=== PATIENT | male | born 1980 | race Caucasian/White ===

== ENCOUNTER 2021-08-11 21:37 | Emergency (ER) | payer OTHER, SELFPAY ==
--- NOTE | ~2021-08-11 | XR_ITS ---
EXAMINATION: XR HAND, LEFT CLINICAL INFORMATION: Laceration to second digit COMPARISON: None TECHNIQUE: PA, lateral, and oblique views of the left hand. FINDINGS: Osseous alignment is anatomic. No acute fracture is seen. Soft tissue defect suspected along the radial aspect of the distal second digit. No radiopaque foreign body identified. XR/XR hand LT min 3V IMPRESSION: Laceration at the tip of the second digit without additional acute findings.
[2021-08-11 21:51] VITALS: BP 105/50; PULSE 76; RESP 18; TEMP 37.1; O2SAT 98; BMI 33.1
--- NOTE | 2021-08-12 00:31 | ED_ITS ---
HPI - Wound/Laceration General Chief Complaint: Wound/Laceration Stated Complaint: lac on right hand Time Seen by Provider: 08/12/21 00:31 Source: patient Mode of arrival: ambulatory Limitations: no limitations History of Present Illness HPI narrative: This is a 40-year-old male past medical history significant for pulmonary embolism currently on Eliquis presenting to the emergency department with complaints of avulsion to the left 1st distal aspect of digit. Patient tells me he was using wood saw and accidentally cut his finger. He immediately started bleeding, experiencing pain. He clean the area well with water and hydrogen peroxide. He is unsure of his tetanus status. Denies numbness, tingling, for eign body sensation. Able to move digit.. Onset (ago): hour(s) (3) Location: other (left first digit ) Place: home Patient tetanus UTD: No Context: accidental Associated symptoms: none Related Data Previous Rx's Medication Instructions Recorded cephalexin 500 mg tablet 500 mg PO Q6H 7 Days #28 tab 08/12/21 doxycycline hyclate 100 mg capsule 100 mg PO BID 7 Days #14 cap 08/12/21 Allergies Allergy/AdvReac Type Severity Reaction Status Date / Time No Known Allergies Allergy Verified 08/11/21 21:57 Review of Systems Review of Systems: Constitutional : No Fever, No Chills, Cardiovascular : No Chest Pain, No SOB Respiratory : No Dyspnea Gastrointestinal : No abdominal pain Musculoskeletal : No Joint Swelling Skin : No rash, positive skin laceration Neuro : No Weakness, No Numbness Psych : No SI/HI Yes all other systems are reviewed and are negative [facility] Past Medical History Attestation statement: The following information was validated with the patient. Source: old records reviewed and nursing notes reviewed Medical History (Updated 08/12/21 @ 01:10 by OLINDA Ochoa) Pulmonary embolism Social History Social History Advance Directives: No Advance Directives Information Provided: No Physical Exam Vital Signs: Vital Signs: Last Vital Signs Temp 98.7 F 08/11/21 21:51 Pulse 76 08/11/21 21:51 Resp 18 08/11/21 21:51 BP 105/50 L 08/11/21 21:51 Pulse Ox 98 08/11/21 21:51 BMI result Body Mass Index 33.1 Vital signs stable Appearance: Alert.? Oriented X3.? No acute distress.? Head: Normocephalic, atraumatic, no step-offs or deformities Eyes: Pupils equal, round and reactive to light.? CVS: Normal heart rate and rhythm.? Pulses normal.? Respiratory: No respiratory distress.? Breath sounds normal.? Abdomen: Soft and nontender.? Skin: Skin warm and dry.? Normal skin color.? Normal skin turgor.?+avulsion to left first digit distal aspect, nail bed intact. Sensory intact to all digits bilaterally. Motor intact. Extremities: No lower extremity edema.? No calf ttp. 5/5 strength to bilateral upper and lower extremities Back: No midline tenderness, no C-spine tenderness, full range of motion, no CVA tenderness bilaterally Neuro: Oriented X 3.? No motor deficit.? No sensory deficit. 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 Patient is on Eliquis. Immediately the area was cleaned off well. And Surgicel was applied to the area to control the bleeding. Upon physical examination there is an evident avulsion to the left distal aspect of 1st digit. Sensory and motor intact to bilateral upper extremities/digits. Capillary refill less than 2 seconds. Nail bed intact. Plan at this time is imaging to rule out fracture of the finger. Medical Records Attestation: I reviewed the patient's medical records. Lab Data Attestation: I reviewed the patient's lab results. Discharge Plan Discharge Clinical Impression: Avulsion of skin Patient Disposition: Home, Self-Care Additional Instructions: Take your medications as prescribed. If you were prescribed antibiotics today, it is important that you take your medication to their entirety, do not skip any doses, do not finish them early. Follow-up with your primary care provider this week. Return to the emergency department with new or worsening symptoms. Such as fevers, chills, chest pain, shortness of breath, nausea, vomiting, dizziness, headache, vision changes, lethargy In case of emergency call 911 XR/XR hand LT min 3V IMPRESSION: Laceration at the tip of the second digit without additional acute findings. Prescriptions: New doxycycline hyclate 100 mg capsule 100 mg PO BID 7 Days Qty: 14 0RF cephalexin 500 mg tablet 500 mg PO Q6H 7 Days Qty: 28 0RF Referrals: Physician,Unknown J [Primary Care Provider] - 2 days Interventions: ED Discharge Assessment Last Done: 08/12/21 01:43 Discharge Date/Time: 08/12/21 01:44
[2021-08-12] MEDS: Diphth,Pertus(ACell),Tet Adult 0.5 ML SYRINGE IM (01:22)
== END 2021-08-12 01:44 | disposition home or self-care (01) ==
PROVIDERS: Emergency Provider Emergency Medicine
DX: S61.012A Laceration without foreign body of left thumb without damage to nail, initial encounter (principal); W31.2XXA Contact with powered woodworking and forming machines, initial encounter; Y93.9 Activity, unspecified; Y92.009 Unspecified place in unspecified non-institutional (private) residence as the place of occurrence of the external cause; Y99.9 Unspecified external cause status; Z79.01 Long term (current) use of anticoagulants
CPT/HCPCS: 12001; 73130; 90471; 90715; 99283; 99284

== ENCOUNTER 2023-12-18 11:28 | Emergency (ER) | payer OTHER, SELFPAY ==
--- NOTE | ~2023-12-18 | US_ITS ---
EXAMINATION: US VENOUS ULTRASOUND WITH DOPPLER LOWER EXTREMITY, RIGHT CLINICAL INFORMATION: History of DVT. Right lower extremity pain and swelling. COMPARISON: None available. TECHNIQUE: Ultrasound of the deep veins is performed from the hip to the calf with compression sonography and color and pulse Doppler assessment. Spectral analysis with color-flow imaging is performed. FINDINGS: There is normal venous compression and respiratory variation and augmented flow. The visualized common femoral vein, superficial femoral vein, profunda femoral vein, popliteal vein, and the trifurcation region shows no evidence of deep venous thrombosis. If the patient's symptoms persist, followup ultrasound in 5 days 7 days might be of value to exclude proximal propagation from a non-visualized calf vein. US/US venous duplex LE RT IMPRESSION: No DVT demonstrated in the right lower extremity.
[2023-12-18 11:45] VITALS: BP 111/70; PULSE 70; RESP 18; TEMP 36.6; O2SAT 97; BMI 35.0
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
[2023-12-18 12:07] LABS: MANUAL DIFF FLAG NO
[2023-12-18 12:26] LABS: Prothrombin Time 11.8 SEC (11.1-13.3)
[2023-12-18 12:31] LABS: Alanine Aminotransferase 20 U/L (0-40); Albumin Level 3.7 g/dL (3.5-5.0); Alkaline Phosphatase 101 U/L (39-117); Anion Gap 13 (12-20); Aspartate Amino Transferase 19 U/L (5-37); Bilirubin Direct 0.1 mg/dL (0.0-0.5); Bilirubin Total 0.4 mg/dL (0.0-1.0); Blood Urea Nitrogen 14 mg/dL (9-16); C Reactive Protein 1.63 mg/dL (< or = 0.50); Calcium 9.2 mg/dL (8.4-10.2); Carbon Dioxide 27 mmol/L (22-29); Chloride 103 mmol/L (96-108); Creatinine Clr Calc Pharmacy 136.4; Estimated Glomerular Filt Rate > 60; Glucose Random 110 mg/dL (60-115); Potassium 3.7 mmol/L (3.3-5.1); Sodium 139 mmol/L (135-145)
[2023-12-18 13:00] LABS: Erythrocyte Sedimentation Rate 23 MM/HR (0-15)
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
[2023-12-18 13:06] VITALS: BP 103/64; PULSE 60; RESP 16; TEMP 36.5; O2SAT 94
[2023-12-18 13:27] LABS: Basophils Percent Auto 0.3 % (0-2); Eosinophils Absolute Auto 0.1 X10*3/uL (0.0-0.4); Eosinophils Percent Auto 1.9 % (0-4); Hematocrit 33.8 % (42.0-52.0); Hemoglobin 11.4 g/dl (14.0-18.0); Imm Gran Abs Auto 0.02 X10*3/uL (0.00-0.03); Imm Gran Pct Auto 0.3 % (0.0-0.4); Lymphocytes Absolute Auto 2.4 X10*3/uL (1.2-4.9); Lymphocytes Percent Auto 35.5 % (20-40); Mean Corpuscular HGB Conc 33.7 g/dl (31.0-36.0); Mean Corpuscular Hemoglobin 29.7 pg (27.0-33.0); Mean Platelet Volume 11.4 fL (9.4-12.4); Monocytes Absolute Auto 0.5 X10*3/uL (0.1-1.2); Monocytes Percent Auto 7.3 % (2-11); Neutrophils Absolute Auto 3.7 x10*3/uL (2.0-8.3); Neutrophils Percent Auto 54.7 % (45-73); Platelet Count 110 X10*3/uL (160-400); Red Blood Count 3.84 X10*6/uL (4.60-5.80); Red Cell Distribution Width 12.8 % (11.0-16.0); White Blood Count 6.8 X10*3/uL (4.8-10.8)
[2023-12-18 15:12] VITALS: BP 100/55; PULSE 58; RESP 16; TEMP 36.4; O2SAT 97
== END 2023-12-18 15:12 | disposition home or self-care (01) ==
PROVIDERS: Emergency Provider Emergency Medicine
DX: L03.115 Cellulitis of right lower limb (principal); M79.604 Pain in right leg; R60.0 Localized edema; Z79.899 Other long term (current) drug therapy
CPT/HCPCS: 36415; 80048; 80076; 82550; 83735; 85025; 85610; 85652; 86140; 93971; 99284

== ENCOUNTER 2024-06-03 02:14 | Emergency (ER) | payer OTHER, SELFPAY ==
[2024-06-03 02:20] VITALS: BP 160/92; PULSE 98; O2SAT 98
[2024-06-03 02:36] VITALS: BP 156/109; PULSE 89; RESP 19; TEMP 36.6; O2SAT 96; BMI 33.0
[2024-06-03 02:46] LABS: MANUAL DIFF FLAG NO
[2024-06-03 02:47] LABS: Basophils Percent Auto 0.4 % (0-2); Eosinophils Absolute Auto 0.1 X10*3/uL (0.0-0.4); Eosinophils Percent Auto 0.7 % (0-4); Hematocrit 39.1 % (42.0-52.0); Hemoglobin 13.8 g/dl (14.0-18.0); Imm Gran Abs Auto 0.01 X10*3/uL (0.00-0.03); Imm Gran Pct Auto 0.1 % (0.0-0.4); Lymphocytes Absolute Auto 3.1 X10*3/uL (1.2-4.9); Lymphocytes Percent Auto 38.6 % (20-40); Mean Corpuscular HGB Conc 35.3 g/dl (31.0-36.0); Mean Corpuscular Hemoglobin 30.3 pg (27.0-33.0); Mean Corpuscular Volume 85.9 fL (80.0-98.0); Mean Platelet Volume 9.5 fL (9.4-12.4); Monocytes Absolute Auto 0.4 X10*3/uL (0.1-1.2); Monocytes Percent Auto 4.4 % (2-11); Neutrophils Absolute Auto 4.5 x10*3/uL (2.0-8.3); Neutrophils Percent Auto 55.8 % (45-73); Platelet Count 204 X10*3/uL (160-400); Red Blood Count 4.55 X10*6/uL (4.60-5.80); Red Cell Distribution Width 12.5 % (11.0-16.0)
[2024-06-03 03:04] LABS: Alanine Aminotransferase 22 U/L (0-40); Albumin Level 4.3 g/dL (3.5-5.0); Anion Gap 17 (12-20); Aspartate Amino Transferase 44 U/L (5-37); Bilirubin Total 0.4 mg/dL (0.0-1.0); Blood Urea Nitrogen 14 mg/dL (9-16); Calcium 9.2 mg/dL (8.4-10.2); Carbon Dioxide 21 mmol/L (22-29); Chloride 105 mmol/L (96-108); Creatinine Clr Calc Pharmacy 132.6; Estimated Glomerular Filt Rate > 60; Ethanol 155 mg/dL; Glucose Random 84 mg/dL (60-115); Magnesium 2.1 mg/dL (1.6-2.6); Potassium 4.1 mmol/L (3.3-5.1); Sodium 139 mmol/L (135-145); Total Protein 8.7 g/dL (6.5-8.0)
--- NOTE | 2024-06-03 03:17 | ED_ITS ---
HPI - Psych General Chief Complaint: ETOH/Substance Use Stated Complaint: SI statements made to gf, pt denied the statements Time Seen by Provider: 06/03/24 02:21 Source: patient Limitations: other (Intoxication) History of Present Illness ED Provider: Lacie Henderson PA-C HPI Narrative: 43-year-old male presents with vague SI. Patient admits to drinking overnight, his girlfriend called EMS to the home after he was making vague comments about self-harm. Patient states he has had increased psychosocial stressors, that at times he feels like ?ending it all?. Patient does not have a specific plan for self-harm. Related Data Previous Rx's ?Medication ?Instructions ?Recorded cephalexin 500 mg tablet 500 mg PO Q6H 7 days #28 tabs 08/12/21 doxycycline hyclate 100 mg capsule 100 mg PO BID 7 days #14 caps 08/12/21 cephalexin 500 mg capsule 500 mg PO QID 7 days #28 caps 12/18/23 doxycycline hyclate 100 mg capsule 100 mg PO BID 7 days #14 caps 12/18/23 Allergies Allergy/AdvReac Type Severity Reaction Status Date / Time No Known Allergies Allergy Verified 06/03/24 02:40 Review of Systems 2 Review of Systems: Yes all other systems are reviewed and are negative Constitutional: Constitutional: Denies fatigue and Denies fever(s) Cardiovascular: Cardiovascular: Denies chest pain and Denies dyspnea Respiratory: Respiratory: Denies dyspnea Gastrointestinal: Gastrointestinal: Denies abdominal pain Endocrine: Endocrine: Denies fatigue PMFSH Past Medical History Attestation statement: The following information was validated with the patient. Medical History Opiate use Pulmonary embolism Social History Social History (Updated 12/18/23 @ 11:55 by Shala Key DO) Alcohol intake: current Alcohol intake frequency: a few times a month Alcohol type: beer and hard liquor Patient Tobacco Use Status: Tobacco use Unknown Smoked in Last 30 Days: Yes Use of substances other than those prescribed or required for medical reasons: Yes Substance Use Type: Marijuana Advance Directives: No Advance Directives Information Provided: Yes Physical Exam 2 Vital Signs: Vital Signs: Last Vital Signs Temp 97.8 F 06/03/24 09:57 Pulse 91 06/03/24 09:57 Resp 18 06/03/24 09:57 BP 127/70 06/03/24 09:57 Pulse Ox 98 06/03/24 09:57 O2 Del Method Room Air 06/03/24 09:57 BMI result Body Mass Index 33.0 Const: Other: Awake Orientation/consciousness: patient oriented x3 HEENT: Other: Alcohol halitosis Resp: Effort & Inspection: normal respiratory effort Cardio: Other: Normal peripheral perfusion Skin: Other: Warm dry no rash Neuro: General: patient oriented x3, no focal motor deficits and CN's II-XI intact bilaterally Psych: Other: Appears intoxicated, is cooperative Course Reevaluation(s) Reevaluation #1: Evaluated by CARE team, obtained collateral information from girlfriend, was intoxicated last night and girlfriend was concerned because he was questioning his purpose in life. Has no other history and currently denying any SI/HI. Will be offered a meeting with recovery and outpatient resources. Girlfriend will come and pick the patient up. I agree with Care team's evaluation, physician observation is ended, patient otherwise appears well and is clinically and objectively sober. Time: 10:13 Medical Decision Making Medical Decision Making MDM Narrative: 43-year-old male presents with vague SI. Patient admits to drinking overnight, his girlfriend called EMS to the home after he was making vague comments about self-harm. Patient states he has had increased psychosocial stressors, that at times he feels like ?ending it all?. Patient does not have a specific plan for self-harm. No known chronic issues History: Per patient I have considered the following differential diagnoses: SI, HI, decompensated psychiatric illness, drug/alcohol intoxication Plan: Screening labs including U tox we will be obtained, placing a care team consult. The patient will have to be assessed after he is clinically sober. I have independently reviewed the following tests: Labs: No leukocytosis, not anemic, no electrolyte abnormality, serum ethanol 155 Lab Data 06/03/24 02:42 06/03/24 02:42 Labs: Lab Results 06/03/24 06/03/24 Range/Units 02:42 08:20 WBC 8.0 (4.8-10.8) X10*3/uL RBC 4.55 L (4.60-5.80) X10*6/uL Hgb 13.8 L D (14.0-18.0) g/dl Hct 39.1 L (42.0-52.0) % MCV 85.9 (80.0-98.0) fL MCH 30.3 (27.0-33.0) pg MCHC 35.3 (31.0-36.0) g/dl RDW 12.5 (11.0-16.0) % Plt Count 204 D (160-400) X10*3/uL MPV 9.5 (9.4-12.4) fL Immature Gran % (Auto) 0.1 (0.0-0.4) % Neut % (Auto) 55.8 (45-73) % Lymph % (Auto) 38.6 (20-40) % [place] % (Auto) 4.4 (2-11) % Eos % (Auto) 0.7 (0-4) % Baso % (Auto) 0.4 (0-2) % Lymph # (Auto) 3.1 (1.2-4.9) X10*3/uL [place] # (Auto) 0.4 (0.1-1.2) X10*3/uL Eos # (Auto) 0.1 (0.0-0.4) X10*3/uL Baso # (Auto) 0.0 (0.0-0.2) X10*3/uL Abs Immat Gran (auto) 0.01 (0.00-0.03) X10*3/uL Absolute Neuts (auto) 4.5 (2.0-8.3) x10*3/uL Absolute Nucleated RBC 0.000 (0.0-0.012) X10*3/uL Nucleated RBC % (auto) 0.0 (0.0-0.2) /100WBC Sodium 139 (135-145) mmol/L Potassium 4.1 (3.3-5.1) mmol/L Chloride 105 (96-108) mmol/L Carbon Dioxide 21 L (22-29) mmol/L Anion Gap 17 (12-20) BUN 14 (9-16) mg/dL Creatinine 0.86 (0.5-1.4) mg/dL Estim Creat Clear Calc 132.6 Estimated GFR > 60 Random Glucose 84 (60-115) mg/dL Calcium 9.2 (8.4-10.2) mg/dL Magnesium 2.1 (1.6-2.6) mg/dL Total Bilirubin 0.4 (0.0-1.0) mg/dL AST 44 H (5-37) U/L ALT 22 (0-40) U/L Alkaline Phosphatase 100 (39-117) U/L Total Protein 8.7 H (6.5-8.0) g/dL Albumin 4.3 (3.5-5.0) g/dL Urine Opiates Screen Not Detected (Not Detect) Ur Buprenorphine Scrn Not Detected (Not Detect) ng/mL Ur Oxycodone Screen Not Detected (Not Detect) ng/mL Urine Methadone Screen Positive H (Not Detect) ng/mL Urine Fentanyl Screen Not Detected (Not Detect) Ur Barbiturates Screen Not Detected (Not Detect) Ur Phencyclidine Scrn Not Detected (Not Detect) Ur Amphetamines Screen Not Detected (Not Detect) U Benzodiazepines Scrn Not Detected (Not Detect) Urine Cocaine Screen POSITIVE H (Not Detect) U Marijuana (THC) Screen POSITIVE H (Not Detect) Ethyl Alcohol 155 mg/dL Discharge Plan Discharge Clinical Impression: Suicidal ideation, Alcoholic intoxication Patient Disposition: Home, Self-Care Instructions: Alcohol Intoxication (ED), Suicide Prevention (ED) Additional Instructions: You are being provided with outpatient resources to include any assistance you may wish for alcohol cessation assistance. Do not hesitate to return to the emergency room if you have any recurrent feelings of wanting to harm yourself or anyone else, we are open 24 hours and more than willing to help. Prescriptions: No Action doxycycline hyclate 100 mg capsule 100 mg PO BID 7 Days Qty: 14 0RF cephalexin 500 mg tablet 500 mg PO Q6H 7 Days Qty: 28 0RF doxycycline hyclate 100 mg capsule 100 mg PO BID 7 Days Qty: 14 0RF cephalexin 500 mg capsule 500 mg PO QID 7 Days Qty: 28 0RF Print Language: [place]
[2024-06-03 04:09] LABS: Alkaline Phosphatase 100 U/L (39-117)
[2024-06-03 05:09] VITALS: BP 141/76; PULSE 80; RESP 20; O2SAT 96
--- NOTE | 2024-06-03 06:46 | MHC.EDTECH ---
belongings in shelf 2
[2024-06-03 08:39] LABS: Amphetamine Screen Urine Not Detected (Not Detect); Barbiturates, Urine Not Detected (Not Detect); Benzodiazepines Screen Urine Not Detected (Not Detect); Buprenorphine Scr Not Detected (Not Detect); Cannabinoid Screen Urine POSITIVE (Not Detect); Cocaine Screen Urine POSITIVE (Not Detect); Fentanyl, urine Not Detected (Not Detect); Methadone Screen, Urine Positive (Not Detect); Opiate Screen Urine Not Detected (Not Detect); Oxycodone Screen Urine Not Detected (Not Detect); Phencyclidine Screen Urine Not Detected (Not Detect)
--- NOTE | 2024-06-03 09:08 | MHC.CARE ---
Message left for pt's Mother Ms. Elmiar Quinonez, , requesting a return call
--- NOTE | 2024-06-03 09:15 | MHC.CARE ---
CARE Team places a call to pt's brother Cody, , there is no answer and the mailbox is full. Unable to leave a message.
[2024-06-03 09:57] VITALS: BP 127/70; PULSE 91; RESP 18; TEMP 36.6; O2SAT 98
[2024-06-03 11:18] VITALS: BP 127/70; PULSE 91; RESP 18; TEMP 36.6; O2SAT 98
--- NOTE | 2024-06-03 11:26 | MHC.CARE ---
[facility] referral completed
--- NOTE | 2024-06-03 11:54 | MHC.CARE ---
Referral for 3 day follow up sent to [facility] and activated. Pt will be placed on a 7 day alert as well.
== END 2024-06-03 11:18 | disposition home or self-care (01) ==
PROVIDERS: Physician Assistant Medical; Emergency Provider Emergency Medicine
DX: F10.129 Alcohol abuse with intoxication, unspecified (principal); Y90.6 Blood alcohol level of 120-199 mg/100 ml; R45.851 Suicidal ideations; Z51.81 Encounter for therapeutic drug level monitoring; Z79.899 Other long term (current) drug therapy
CPT/HCPCS: 36415; 80053; 80307; 83735; 85025; 99285; S9485